=== PATIENT | female | born 1995 ===

== ENCOUNTER 2024-07-13 23:35 | Inpatient (IN) | payer MEDICAID ==
[2024-07-14] MEDS ORDERED: Lidocaine 1% 50 ML MDV INJECT PRN (01:06)
[2024-07-14] MEDS ORDERED: Carboprost Tromethamine 250 MCG/1 mL Vial IM PRN (01:06)
[2024-07-14] MEDS ORDERED: Butorphanol 1 MG/ML SDV IVPUSH PRN (01:06)
[2024-07-14] MEDS ORDERED: Misoprostol 200 MCG Tab PO PRN (01:06)
[2024-07-14] MEDS ORDERED: Sodium Chloride 0.9% 2.5 ML Syringe FLUSH PRN (01:06)
[2024-07-14] MEDS ORDERED: Sodium Chloride 0.9% 10 ML Syringe FLUSH PRN (01:06)
[2024-07-14] MEDS ORDERED: Sodium Chloride 0.9% 20 ML SDV IV PRN (01:06)
[2024-07-14] MEDS ORDERED: Ondansetron 4 MG/2 ML SDV IVPUSH PRN (01:06)
[2024-07-14] MEDS ORDERED: Water For Irrigation,Sterile 1,000 ML Container IRR PRN (01:06)
[2024-07-14] MEDS ORDERED: Terbutaline 1 MG/ML SDV SUBCUT PRN (01:18)
[2024-07-14 02:19] LABS: HEMATOCRIT 35.4 % (37.0-47.0); HEMOGLOBIN 11.8 g/dL (12.0-16.0); MEAN CORPUSCULAR HEMOGLOBIN 30.6 pg (28.0-32.0); MEAN CORPUSCULAR HGB CONC 33.3 g/dL (32.0-36.0); MEAN CORPUSCULAR VOLUME 91.7 fL (83.0-99.0); MEAN PLATELET VOLUME 11.7 fL (9.4-12.3); PLATELET COUNT,PLT 268 K/uL (150-400); RED BLOOD CELL COUNT 3.86 M/uL (4.10-5.30); WHITE BLOOD CELL COUNT,WBC 6.53 K/uL (3.9-11.3)
[2024-07-14] MEDS: Misoprostol 25 MCG (1/4 of 100 MCG) Tab PO PRN (03:10)
[2024-07-14] MEDS: Misoprostol 25 MCG (1/4 of 100 MCG) Tab VAG PRN (03:10)
[2024-07-14] MEDS: Lactated Ringers 1,000 ML IV SCH (08:17)
[2024-07-14] MEDS ORDERED: Phenylephrine HCl In 0.9% NaCl 1 MG/10 ML Syringe ONE (10:35)
[2024-07-14] MEDS ORDERED: Bupivacaine 0.5% 10 ML SDV ONE (10:35)
[2024-07-14] MEDS: Ropivacaine HCl/PF 200 ML ONE (11:02)
[2024-07-14] MEDS ORDERED: ePHEDrine 50 MG/ML SDV IM PRN (11:15)
[2024-07-14] MEDS ORDERED: dexmedeTOMIDine HCl 200 MCG/2 ML SDV EPIDUR SCH (11:15)
[2024-07-14] MEDS ORDERED: Phenylephrine HCl In 0.9% NaCl 1 MG/10 ML Syringe IVPUSH PRN (11:15)
[2024-07-14] MEDS ORDERED: Ropivacaine HCl/PF 400 MG in Premix Bag 1 BAG EPIDUR SCH (11:15)
[2024-07-14] MEDS ORDERED: ePHEDrine 50 MG/ML SDV IVPUSH PRN (11:15)
[2024-07-14] MEDS ORDERED: Bupivacaine 0.5% 10 ML SDV INJECT ONE (11:15)
[2024-07-14] MEDS: Oxytocin/0.9 % Sodium Chloride 30 UNIT/500 ML BAG IV SCH ×2 (12:28→21:52)
[2024-07-14] MEDS: Tranexamic Acid in NACL,ISO-OS 1,000 MG in Premix Bag 1 BAG IV PRN (22:03)
[2024-07-14] MEDS: Methylergonovine 0.2 MG/1 ML Amp IM PRN (22:05)
[2024-07-14] MEDS ORDERED: Famotidine 20 MG Tab PO PRN (22:25)
[2024-07-14] MEDS ORDERED: Docusate Sodium 100 MG Cap PO PRN (22:25)
[2024-07-14] MEDS ORDERED: Simethicone 80 MG Tab.Chew PO PRN (22:25)
[2024-07-14] MEDS ORDERED: Lanolin 100% Cream 7 GM Tube TOP PRN (22:25)
[2024-07-14] MEDS ORDERED: Aluminum Hydroxide/Magnesium Hydroxide/Simethicone Susp 30 ML Cup PO PRN (22:25)
[2024-07-14 23:17] LABS: PH,UMBILICAL ARTERIAL 7.26 (7.18-7.38); PH,UMBILICAL VENOUS 7.38 (7.25-7.45)
[2024-07-14] MEDS: Acetaminophen 500 MG Tab PO PRN (23:22)
[2024-07-14] MEDS: Benzocaine/Menthol 20%-0.5% Spray 78 GM Cannister TOP PRN (23:23)
[2024-07-14] MEDS: Witch Hazel Medicated Pads 40/Jar TOP PRN (23:23)
[2024-07-15 06:00] LABS: BASOPHILS ABSOLUTE AUTO 0.04 K/uL (0.00-0.20); BASOPHILS PERCENT AUTO 0.3 % (0.0-1.0); EOSINOPHILS ABSOLUTE AUTO 0.02 K/uL (0.00-0.45); EOSINOPHILS PERCENT AUTO 0.1 % (0.0-6.0); HEMATOCRIT 35.5 % (37.0-47.0); HEMOGLOBIN 11.7 g/dL (12.0-16.0); IMMATURE GRAN ABSOLUTE AUTO 0.06 K/uL (0.00-0.05); IMMATURE GRAN PERCENT AUTO 0.4 % (0.0-0.4); LYMPHOCYTES ABSOLUTE AUTO 1.87 K/uL (1.00-4.80); MEAN CORPUSCULAR HEMOGLOBIN 30.1 pg (28.0-32.0); MEAN CORPUSCULAR VOLUME 91.3 fL (83.0-99.0); MEAN PLATELET VOLUME 11.6 fL (9.4-12.3); MONOCYTES ABSOLUTE AUTO 1.14 K/uL (0.00-0.80); MONOCYTES PERCENT AUTO 7.3 % (0.0-8.0); NEUTROPHILS ABSOLUTE AUTO 12.39 K/uL (1.80-7.70); NEUTROPHILS PERCENT AUTO 79.9 % (41.0-71.0); PLATELET COUNT,PLT 237 K/uL (150-400); RED BLOOD CELL COUNT 3.89 M/uL (4.10-5.30); WHITE BLOOD CELL COUNT,WBC 15.52 K/uL (3.9-11.3)
== END 2024-07-16 02:00 | disposition home or self-care (01) | DRG 807 ==
LOC: EEVIPCON → MW.OBCHECK 23:35 → MW.OB 23:36 → OBSVTOIN 07-14 21:50 → MW.OB 07-15 00:25
PROVIDERS: ADMIT Obstetrics & Gynecology; ATTEND Obstetrics & Gynecology Obstetrics
PROC: 10E0XZZ Delivery of Products of Conception, External Approach (ICD-10-PCS; principal; 2024-07-14)
PROC: 10H07YZ Insertion of Other Device into Products of Conception, Via Natural or Artificial Opening (ICD-10-PCS; 2024-07-14)
PROC: 3E0R3BZ Introduction of Anesthetic Agent into Spinal Canal, Percutaneous Approach (ICD-10-PCS; 2024-07-14)
PROC: 3E0P7VZ Introduction of Hormone into Female Reproductive, Via Natural or Artificial Opening (ICD-10-PCS; 2024-07-14)
DX: O48.0 Post-term pregnancy (principal); Z37.0 Single live birth; O99.214 Obesity complicating childbirth; O36.63X0 Maternal care for excessive fetal growth, third trimester, not applicable or unspecified; Z88.8 Allergy status to other drugs, medicaments and biological substances; Z79.899 Other long term (current) drug therapy; Z3A.40 40 weeks gestation of pregnancy; Z88.6 Allergy status to analgesic agent; Z91.040 Latex allergy status
CPT/HCPCS: 01961; 36415; 51702; 59025; 59409; 76815; 76815-26; 82803; 85025; 85027; 86592; 86850; 86900; 86901; A9270-GY; J0665; J2210; J2371; J2590; J2795; J7120